=== PATIENT | male | born 1960 | race Caucasian/White ===

== ENCOUNTER → 2023-04-22 | Outpatient (CLI) | payer OTHER ==
--- NOTE | 2023-04-22 22:38 | US ---
EXAMINATION TYPE: US abdomen limited DATE OF EXAM: 04/22/2023 COMPARISON: NONE CLINICAL INDICATION: Male, 62 years old with history of R10.11 RIGHT UPPER QUADRANT PAIN; RUQ pain li mited due to body habitus. TECHNIQUE: Multiple sonographic images of the right upper quadrant are obtained. FINDINGS: EXAM MEASUREMENTS: Liver Length: 21.2 cm Gallbladder Wall: .4 cm CBD: .8 cm Right Kidney: 10.2 x 5.1 x 4.5 cm Pancreas: Obscured by bowel gas Liver: Hepatomegaly increased attenuation. The degree of echogenicity and attenuation limits assess ment for focal lesions. Gallbladder: A 1.1 cm stone visualized. No wall thickening or hydropic change. Evidence for sonographic Escobar's sign: no CBD: Mildly dilated. Right Kidney: wnl IMPRESSION: 1. Hepatomegaly at 21.2 cm with severe hepatic steatosis. Appropriate clinical management is advised. 2. A 1.1 cm gallstone. 3. Bile duct mildly dilated at 8 mm. This may be chronic for the patient. Correlate with alkaline emanuel sphatase and bilirubin levels.
== END | disposition home or self-care (01) ==
LOC: RADUSWWP 08:15
PROVIDERS: ATTEND Family Medicine
DX: K80.20 Calculus of gallbladder without cholecystitis without obstruction (principal); K83.8 Other specified diseases of biliary tract; K76.0 Fatty (change of) liver, not elsewhere classified; R16.0 Hepatomegaly, not elsewhere classified
CPT/HCPCS: 76705

== ENCOUNTER 2023-05-28 13:27 | Day surgery (SDC) | payer OTHER ==
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
[~2023-05-28 13:27] MED LIST: HEPARIN SODIUM,PORCINE 5,000 UNIT/ML 1 ML VIAL SQ STA; INDOCYANINE GREEN 25 MG VIAL IV STA; ONDANSETRON 4 MG/2 ML VIAL IVP PRN
[2023-05-28] MEDS: LACTATED RINGERS 1,000 ML IV ONE (14:11)
[2023-05-28] MEDS ORDERED: LIDOCAINE 1% (10MG/ML) FOR IV START INTRADERMA PRN (14:19)
[2023-05-28] MEDS ORDERED: droPERidol 5 MG/2 ML VIAL IVP ONE (14:19)
[2023-05-28] MEDS ORDERED: HYDROmorphone 0.5 MG/0.5 ML SYRINGE IVP PRN (14:19)
[2023-05-28] MEDS: ACETAMINOPHEN TAB 500 MG TAB PO PRN (14:49)
[2023-05-28] MEDS: HEPARIN SODIUM,PORCINE 5,000 UNIT/ML 1 ML VIAL SQ PRN (14:49)
[2023-05-28] MEDS: ONDANSETRON 4 MG/2 ML VIAL IVP ONE (14:50)
[2023-05-28 14:53] VITALS: TEMP 98.5
[2023-05-28] MEDS: DEXAMETHASONE SOD PHOSPHATE 4 MG/ML 1 ML VIAL IVP ONE (16:08)
[2023-05-28] MEDS ORDERED: MIDAZOLAM 2 MG/2 ML VIAL ONE (17:12)
[2023-05-28] MEDS ORDERED: HYDROmorphone (PF) 1 MG/ML ONE (17:12)
[2023-05-28] MEDS ORDERED: ROCURONIUM 10 MG/ML (5 ML VIAL) IV ONE (17:12)
[2023-05-28] MEDS ORDERED: LIDOCAINE 1% INJ 10MG/ML (20 ML MDV) ONE (17:12)
[2023-05-28] MEDS ORDERED: GLYCOPYRROLATE 0.2 MG/ML 2 ML VIAL ONE (17:12)
[2023-05-28] MEDS ORDERED: WATER FOR INJECTION, STERILE 10 ML VIAL IV ONE (17:12)
[2023-05-28] MEDS ORDERED: PROPOFOL 10 MG/ML 20 ML VIAL IV ONE (17:12)
[2023-05-28] MEDS ORDERED: PHENYLEPHRINE 10 MG/ML VIAL ONE (17:12)
[2023-05-28] MEDS ORDERED: NEOSTIGMINE 1 MG/ML 10 ML VIAL ONE (17:12)
[2023-05-28] MEDS ORDERED: SUCCINYLCHOLINE CHLORIDE 200 MG/10 ML VIAL IV ONE (17:12)
[2023-05-28] MEDS ORDERED: fentaNYL (PF) 50 MCG/ML 2 ML AMP ONE (17:12)
[2023-05-28] MEDS: ceFAZolin 3 GM in SODIUM CHLORIDE 0.9% 100 ML IVPB PRN (17:16)
[2023-05-28] MEDS: LIDOCAINE 1%-EPI 1:100,000 20 ML VIAL SQ ONE (17:49)
[2023-05-28] MEDS: LACTATED RINGERS 1,000 ML IV SCH (18:34)
--- NOTE | 2023-05-28 19:52 | P.OP ---
Date of Procedure: 05/28/23 Description of Procedure: SURGEON: CANDY FLORES MD PREOPERATIVE DIAGNOSES: 1. Acute cholecystitis due to gallstones 2. Hypertensive heart disease 3. Atypical chest pain 4. Morbid obesity due to excess calories, BMI 41.5 5. Traumatic left below-knee amputation POSTOPERATIVE DIAGNOSES: 1. Acute on chronic cholecystitis due to gallstones 2. Hypertensive heart disease 3. Atypical chest pain 4. Morbid obesity due to excess calories, BMI 41.5 5. Traumatic left below-knee amputation 6. Hepatomegaly with fatty liver disease OPERATION: 1. Robotic-assisted da Medhat Xi laparoscopic cholecystectomy, multiport with FIREFLY ESTIMATED BLOOD LOSS: 20 mL. SPECIMENS REMOVED: Gallbladder. COMPLICATIONS: None. OPERATIVE FINDINGS: 1. Acute on chronic cholecystitis due to gallstones, gallbladder contracted requiring dome down technique 2. Indocyanine green drain confirms acute cholecystitis with lack of contrast in gallbladder 3. Severe hepatomegaly including fatty liver disease INDICATIONS: The patient is a 62 year-old female who presents with atypical chest pain and recent acute cholecystitis at outside facility. Surgical intervention with cholecystectomy was described. Robotic assisted laparoscopic approach was described. Benefits and risks of the procedure including but not limited to bleeding, infection, injury to the biliary tree was reviewed. Informed consent was obtained. DESCRIPTION OF PROCEDURE: Patient was brought to the operating room, placed in supine position. After general induction, the abdomen had been prepped and draped in standard sterile fashion. The robotic da Medhat XI system was primed. After a timeout protocol was performed, the patient had been prepped and draped in standard sterile fashion. The patient was injected with indocyanine green. A 5 mm 0 degrees laparoscopic trocar entry was performed along the left upper quadrant. The abdomen insufflated to 15 mmHg pressure which was tolerated well. Diagnostic laparoscopy demonstrated no injury to bowel viscera or mesentery. The liver surface was remarkable for fatty liver disease including hepatomegaly. A contracted intrahepatic gallbladder was identified adding complexity to the case. Next, two 8 mm robotic ports were placed along the right upper abdomen. The camera 8-mm port was maintained along the epigastrium. Another 8 mm port was placed along the left upper abdominal wall after exchanging the 5 mm port. Please note that the ports were placed at least 10 to 15 cm away from the target anatomy of the gallbladder. The robot was docked along the left lateral abdomen. The patient was repositioned in reverse Trendelenburg position with the right side up. Using a grasper for arm 3, a grasper for arm 4, including hook cautery for arm 1, the robotic system was docked and primed as described. Instruments were interchanged by the pier master assistant including hook cautery, Bovie cautery and clip appliers. I had sat at the console. The gallbladder was reflected towards the dome of the liver. The gallbladder was moderately contracted adding complexity to the case. Moderate edema was found along the cystic triangle including infundibulum. Initial dissection was performed on the gallbladder infundibulum using indocyanine green to illuminate the cystic duct and common bile duct however not opacified due to severity of edema. Due to moderate distention of the infundibulum, dome down technique was performed removing the gallbladder from the hepatic fossa starting from the fundus towards the infundibulum. Using a sponge, the liver was reflected towards the diaphragm and starting at the gallbladder fundus, hook cautery was used to find the avascular plane between the liver and the gallbladder. As the gallbladder was dissected from the hepatic fossa, hemostasis was checked using hook cautery. The entire gallbladder was without contrast consistent with acute cholecystitis. The infundibulum was retracted laterally to expose the cystic duct away from the common bile duct. The cystic duct was dissected free from its surrounding tissue. Large PLASTIC clips were used throughout the entire case. Using a clip navy diver, a clip was placed at the junction of the infundibulum and cystic artery. Due to persistent edema at the cystic structures, the left upper quadrant trocar was exchanged for a 12 mm trocar. A 45 mm robotic green staple load was fired along the infundibulum. Initial misfiring occurred where leakage of bile occurred. Another firing of robotic green staple load was performed without active bleeding or bile. Careful inspection along the hepatic fossa was performed without active bleeding or bile. Hemostasis was checked and found to be adequate. The robot was undocked. I re-scrubbed into the case. A 10 mm Endo Catch bag was used to remove the gallbladder in total via the left upper quadrant incision after widening the incision. The specimen was removed from the abdominal cavity All pneumoperitoneum instruments were evacuated from the abdominal cavity. The incisions were cleansed using dilute hydrogen peroxide. The incisions were reapproximated using 4-0 Monocryl in an interrupted subcuticular fashion. Please note along the trocar sites, local anesthetic was placed as a field block prior to insertion of all instruments. Liquid glue was applied to the skin. At the end of the procedure needle, sponge, and instrument count had been verified correct by the surgical supervisor. The patient was transferred to postanesthesia care unit in stable condition. Intraoperative films were shared with the patient's family who were pleased with the level of care. Plan - Discharge Summary Discharge Rx Participant: No New Discharge Prescriptions: New Ibuprofen [Motrin] 600 mg PO Q8HR PRN #30 tab PRN Reason: Pain Simethicone [Gas-X] 125 mg PO AC-TID PRN #20 capsule PRN Reason: Pain Acetaminophen Tab [Tylenol Tab] 1,000 mg PO Q6HR PRN #30 tablet PRN Reason: Pain Continue lisinopriL [Zestril] Atorvastatin Calcium Metoprolol Tartrate 25 mg PO Discharge Medication List Acetaminophen Tab [Tylenol Tab] 1,000 mg PO Q6HR PRN #30 tablet 05/28/23 [Rx] Atorvastatin Calcium 05/28/23 [History] Ibuprofen [Motrin] 600 mg PO Q8HR PRN #30 tab 05/28/23 [Rx] Metoprolol Tartrate 25 mg PO 05/28/23 [History] Simethicone [Gas-X] 125 mg PO AC-TID PRN #20 capsule 05/28/23 [Rx] lisinopriL [Zestril] 05/28/23 [History] Follow up Appointment(s)/Referral(s): Candy Flores MD [STAFF PHYSICIAN] - 06/01/23 11:00 am (TELE[facility]ALTH - WILL CALL YOU BETWEEN 9 am to 8 pm ) Patient Instructions/Handouts: Laparoscopic Cholecystectomy (DC), Non-Alcoholic Fatty Liver Disease (GEN) Activity/Diet/Wound Care/Special Instructions: TELEHEALTH - WILL CALL YOU BETWEEN 9 am to 8 pm Recommend low-fat diet for the next 2 days. No lifting over 10 pounds in 2 weeks until June 10June shower. No bath tub soaks or swimming for two weeks until June 10 Diet as tolerated. Use Tylenol, simethicone and ibuprofen or Aleve scheduled for the next 24-48 hours for best pain relief. Use ice along incisions for today to prevent swelling. Discharge Disposition: HOME SELF-CARE
[2023-05-28] MEDS: IBUPROFEN 600 MG TAB PO ONE ×3 (20:15→20:27)
[2023-05-28 20:24] LABS: Basophils # (A) 0.1 k/uL (0-0.2); Basophils % (A) 0 %; Eosinophils # (A) 0.5 k/uL (0-0.7); Eosinophils % (A) 5 %; HCT 48.8 % (39.0-53.0); HGB 15.7 gm/dL (13.0-17.5); Lymphocytes # (A) 2.6 k/uL (1.0-4.8); Lymphocytes % (A) 25 %; MCH 27.4 pg (25.0-35.0); MCHC 32.1 g/dL (31.0-37.0); MCV 85.3 fL (80.0-100.0); Mean Platelet Volume 8.2; Monocytes # (A) 0.3 k/uL (0-1.0); Monocytes % (A) 3 %; Neutrophils # (A) 6.8 k/uL (1.3-7.7); Neutrophils % (A) 66 %; Platelet Count 176 k/uL (150-450); RBC 5.72 m/uL (4.30-5.90); RDW 13.9 % (11.5-15.5); WBC 10.4 k/uL (3.8-10.6)
[2023-05-28 20:40] LABS: ALT 124 U/L (4-49); AST 132 U/L (17-59); African American GFR (CKD) 89 (>60 ml/min/1.73 sqM); Albumin 4.1 g/dL (3.5-5.0); Alkaline Phosphatase 145 U/L (38-126); Anion Gap 7 mmol/L; Blood Urea Nitrogen 16 mg/dL (9-20); Calcium 9.2 mg/dL (8.4-10.2); Carbon Dioxide 27 mmol/L (22-30); Chloride 105 mmol/L (98-107); Glucose 151 mg/dL (74-99); Non-African American GFR(CKD) 77 (>60 ml/min/1.73 sqM); Potassium 5.4 mmol/L (3.5-5.1); Sodium 139 mmol/L (137-145); Total Bilirubin 0.6 mg/dL (0.2-1.3); Total Protein 7.2 g/dL (6.3-8.2)
[2023-05-28 21:01] VITALS: BP 136/58; PULSE 94; RESP 20
== END 2023-05-28 21:00 | disposition home or self-care (01) ==
LOC: OR 13:27
PROVIDERS: ATTEND Surgery Plastic and Reconstructive Surgery
DX: K80.12 Calculus of gallbladder with acute and chronic cholecystitis without obstruction (principal); K76.0 Fatty (change of) liver, not elsewhere classified; I11.9 Hypertensive heart disease without heart failure; E78.00 Pure hypercholesterolemia, unspecified; E66.01 Morbid (severe) obesity due to excess calories; Z68.41 Body mass index [BMI] 40.0-44.9, adult; Z89.512 Acquired absence of left leg below knee; Z88.0 Allergy status to penicillin; Z79.899 Other long term (current) drug therapy
CPT/HCPCS: 88304; 80053; 85025; 47562; J2250; J0330; J1644; J1100; J2710; J0690; J2405; J2001; J3010; J1170; J2704; J2371